=== PATIENT | female | born 1950 | race Caucasian/White ===

== ENCOUNTER → 2021-07-04 16:10 | Outpatient (CLI) | payer MEDICARE, SELFPAY ==
[2021-07-04 19:04] LABS: COVID19 -Nasal RAPID Negative (Negative)
== END ==
PROVIDERS: Referring Provider Nurse Practitioner; Visit Provider Nurse Practitioner
DX: R05 Cough (principal); R09.81 Nasal congestion
CPT/HCPCS: 87635

== ENCOUNTER 2021-07-04 17:14 | Observation (INO) | payer MEDICARE, SELFPAY ==
[2021-07-04] VITALS (33 sets, daily range): BP systolic 100–185; BP diastolic 57–112; PULSE 65–166; RESP 12–26; TEMP 36.6; O2SAT 92–100; BMI 33.8
[2021-07-04] MEDS: ADENOSINE 6 MG/2 ML VIAL IV (17:35)
[2021-07-04] MEDS: ADENOSINE 6 MG/2 ML VIAL 12 MG IV (17:37)
--- NOTE | 2021-07-04 17:41 | DI.RAD.S_ITS ---
PROCEDURE: XR CHEST 1V INDICATIONS: Short of breath TECHNIQUE: One view of the chest was acquired. COMPARISON: None. FINDINGS: Surgical changes and devices: None. Lungs and pleura: Lungs are clear. No pleural effusions or pneumothorax. Mediastinum: Heart size enlarged, there is mild vascular congestion present. No focal infiltrate. Right hemidiaphragm elevated. Bones and chest wall: No suspicious bony lesions. Overlying soft tissues appear unremarkable. IMPRESSION: Cardiomegaly mild vascular congestion Approved by: Jeff Chapman M.D. on 07/04/2021 at 17:52
--- NOTE | 2021-07-04 17:42 | ED_ITS ---
HPI - Arrhythmia/Palpitations <Fidel Villanueva MD - Last Filed: 07/06/21 21:34> General Chief Complaint: Arrhythmia/Palpitations Stated Complaint: xray, blood clots, breathing discomfort Time Seen by Provider: 07/04/21 17:24 Source: patient and family Mode of arrival: Ambulatory Limitations: no limitations History of Present Illness HPI narrative: Patient here with . Sent over from urgent care for intermittent palpitations with dyspnea in the past at least 1 week. Patient is from [place], [place]. Came here about a month ago, residing on their boat at [place]. No recent illness fever chills cough cold or congestion. No prior history of arrhythmia or heart attack or stroke. No recent changes in health. Patient heart rate at Urgent Care was 82. Here she arrived with heart rate of 166. On monitor, rhythm showed episodic sinus tachycardia to atrial flutter/atrial fibrillation to SVT. There are P-waves with the tachycardia. Attempts with Adenocard 6 mg and then 12 mg without resolution. Second EKG does show atrial fibrillation with RVR. Patient tolerated Adenocard without any difficulties. No syncope. No hypotension Related Data Home Medications Medication Instructions Recorded Confirmed estradiol 1 mg tablet 1 mg PO DAILY 07/04/21 07/05/21 progesterone micronized 200 mg 200 mg PO BEDTIME 07/04/21 07/05/21 capsule Previous Rx's Medication Instructions Recorded apixaban 5 mg tablet (Eliquis) 5 mg PO BID #60 tab 07/06/21 diltiazem HCl 60 mg 60 mg PO BID #60 cap 07/06/21 capsule,extended release 12 hr metoprolol succinate 25 mg 12.5 mg PO BID #60 tab 07/06/21 tablet,extended release 24 hr Allergies Allergy/AdvReac Type Severity Reaction Status Date / Time No Known Drug Allergies Allergy Verified 07/04/21 17:31 Review of Systems <Fidel Villanueva MD - Last Filed: 07/06/21 21:34> Review of Systems Narrative: GENERAL: Denies chills, fatigue, malaise, fever, sweats. HEENT: Denies sinus pain, ear pain, sore throat RESPIRATORY: Complains dyspnea, denies cough CARDIOVASCULAR: Denies chest pain, complains of palpitations GASTROINTESTINAL: Denies nausea, vomiting, abdominal pain : Denies dysuria, frequency, hematuria MUSCULOSKELETAL: denies muscle or bony pain SKIN: Denies rash, skin lesions NEUROLOGIC: Denies weakness, numbness ROS Unobtainable: All systems reviewed & are unremarkable except as noted in HPI and below Patient History <Fidel Villanueva MD - Last Filed: 07/06/21 21:34> Medical History (Updated 07/05/21 @ 03:57 by [facility] History of pneumothorax Hormone replacement therapy (HRT) Surgical History (Updated 07/05/21 @ 03:56 by ENEDELIA Pemberton-) History of hysterectomy Family History (Updated 07/05/21 @ 04:13 by DESIRAE Pemberton) Mother Cancer Father Rheumatic fever/heart disease Social History household members: spouse Smoking Status: Former smoker Smoking Status: Former smoker alcohol intake frequency: a few times a week Substance Use Type: does not use Exam <Fidle Villanueva MD - Last Filed: 07/06/21 21:34> Narrative Exam Narrative: GENERAL: in no distress, not toxic not dyspneic HEAD: Normocephalic. EYES: Pupils equal round No scleral icterus. No injection no discharge ENT: Mucous membranes moist. NECK: Trachea midline. CARDIOVASCULAR: Tachycardia with intermittent irregular irregular rhythm. With interval tachycardia with regular rhythm RESPIRATORY: Clear to auscultation. Breath sounds equal bilaterally. No wheezes, rales, or rhonchi. GASTROINTESTINAL: Abdomen soft, non-tender EXTREMITIES: No gross deformities. BACK: No flank tenderness. NEURO: AOx4. SKIN: Warm and dry PSYCH: Not anxious, is cooperative Initial Vital Signs Initial Vital Signs: Vital Signs Temperature 97.9 F 07/04/21 17:15 Pulse Rate 166 H 07/04/21 17:15 Respiratory Rate 24 07/04/21 17:15 Blood Pressure 182/112 H 07/04/21 17:15 Pulse Oximetry 100 07/04/21 17:15 <Zach Abad DO - Last Filed: 07/04/21 23:14> Initial Vital Signs Initial Vital Signs: Vital Signs Temperature 97.9 F 07/04/21 17:15 Pulse Rate 166 H 07/04/21 17:15 Respiratory Rate 24 07/04/21 17:15 Blood Pressure 182/112 H 07/04/21 17:15 Pulse Oximetry 100 07/04/21 17:15 Scores <Fidel Villanueva MD - Last Filed: 07/06/21 21:34> CHADS-VASc CHADS-VASc Score: 2 <Zach Abad DO - Last Filed: 07/04/21 23:14> CHADS-VASc Congestive heart failure: no Hypertension: no Age 75 years or older: no Diabetes mellitus: no Stroke, TIA, or TE: no Vascular disease: no Age 65 to 74 years: yes Sex category (female): Female CHADS-VASc Score: 2 Course <Fidel Villanueva MD - Last Filed: 07/06/21 21:34> Course Course Narrative: 1900 s/o dr abad, awaiting labs and imaging results and response to Cardizem. Will need to call Cardiology as well for possible transfer Patient will need ICU admit for Cardizem drip. Decision to Admit Date: 07/04/21 Decision to Admit time: 17:46 Orders Ordered: Discontinued Medications Acetaminophen (Acetaminophen 325 Mg Tablet) 650 mg PO Q6HR PRN PRN Reason: Fever/Mild Pain (1-3) Adenosine (Adenosine 6 Mg/2 Ml Vial) 6 mg IV NOW ONE Stop: 07/04/21 17:40 Last Admin: 07/04/21 17:35 Dose: 6 mg Documented by: PHYLLIS Adenosine (Adenosine 6 Mg/2 Ml Vial) 12 mg IV NOW ONE Stop: 07/04/21 17:41 Last Admin: 07/04/21 17:37 Dose: 12 mg Documented by: PHYLLIS Apixaban (Apixaban 5 Mg Tablet) 5 mg PO NOW ONE Stop: 07/04/21 21:00 Last Admin: 07/04/21 21:25 Dose: 5 mg Documented by: ABDOULAYE Apixaban (Apixaban 5 Mg Tablet) 5 mg PO BID ANA Last Admin: 07/06/21 08:34 Dose: 5 mg Documented by: Admin: 07/05/21 20:28 Dose: 5 mg Documented by: Admin: 07/05/21 09:18 Dose: 5 mg Documented by: DENICE Aspirin (Aspirin 81 Mg Chew Tab) 324 mg PO NOW ONE Stop: 07/04/21 17:41 Last Admin: 07/04/21 17:50 Dose: 324 mg Documented by: PHYLLIS Diltiazem HCl (Diltiazem Sr 60 Mg) 60 mg PO BID [facility] Last Admin: 07/06/21 08:33 Dose: 60 mg Documented by: Admin: 07/05/21 20:28 Dose: 60 mg Documented by: NOLBERTOHINADER Enoxaparin Sodium (Enoxaparin 40 Mg/0.4 Ml Syringe) 40 mg SUBCUT DAILY [facility] Heparin Sodium (Porcine) (Heparin 5,000 Unit/Ml Vial) 5,000 unit SUBCUT BID [facility] Diltiazem HCl 125 mg/ Sodium (Chloride) 125 mls @ 5 mls/hr IV TITRATE [facility]; Protocol Last Titration: 07/04/21 20:43 Dose: 0 mg/hr, 0 mls/hr Documented by: Titration: 07/04/21 20:23 Dose: 8 mg/hr, 8 mls/hr Documented by: Titration: 07/04/21 20:09 Dose: 10 mg/hr, 10 mls/hr Documented by: Titration: 07/04/21 19:51 Dose: 13 mg/hr, 13 mls/hr Documented by: Titration: 07/04/21 19:40 Dose: 15 mg/hr, 15 mls/hr Documented by: Titration: 07/04/21 18:46 Dose: 20 mg/hr, 20 mls/hr Documented by: Titration: 07/04/21 18:23 Dose: 15 mg/hr, 15 mls/hr Documented by: Titration: 07/04/21 18:07 Dose: 10 mg/hr, 10 mls/hr Documented by: Admin: 07/04/21 17:50 Dose: 5 mg/hr, 5 mls/hr Documented by: PHYLLIS Metoprolol Succinate (Metoprolol Er 25 Mg Tablet) 25 mg PO DAILY [facility] Last Admin: 07/05/21 09:19 Dose: 25 mg Documented by: CLEGRETTA Metoprolol Succinate (Metoprolol Er 25 Mg Tablet) 25 mg PO NOW ONE Stop: 07/05/21 10:31 Last Admin: 07/05/21 10:47 Dose: 25 mg Documented by: CLEOPAR Metoprolol Succinate (Metoprolol Er 25 Mg Tablet) 50 mg PO BID [facility] Metoprolol Succinate (Metoprolol Er 25 Mg Tablet) 12.5 mg PO BID [facility] Last Admin: 07/06/21 08:33 Dose: 12.5 mg Documented by: Admin: 07/05/21 20:29 Dose: 12.5 mg Documented by: JOANN Metoprolol Tartrate (Metoprolol Ir 25 Mg Tablet) 25 mg PO NOW ONE Stop: 07/04/21 19:26 Last Admin: 07/04/21 19:42 Dose: 25 mg Documented by: ABDOULAYE Morphine Sulfate (Morphine 2 Mg/Ml Inj) 2 mg IV Q5MIN PRN PRN Reason: Chest Pain Naloxone HCl (Naloxone 0.4 Mg/Ml Vial) 0.2 mg IV Q2MIN PRN PRN Reason: Opiate Reversal Nitroglycerin (Nitroglycerin 0.4 Mg Sl Tab) 0.4 mg SL [id number] PRN PRN Reason: Chest Pain Ondansetron HCl (Ondansetron 4 Mg/2 Ml Inj) 4 mg IV Q8HR PRN PRN Reason: Nausea And Vomiting Sodium Chloride (Sodium Chloride 0.9% Flush) 10 ml IV PRN PRN PRN Reason: Flush Sodium Chloride (Sodium Chloride 0.9% Flush) 10 ml IV BID [facility] Last Admin: 07/06/21 08:34 Dose: 10 ml Documented by: OSBALDO Vital Signs Vital signs: Vital Signs - 8 hr 07/04/21 17:15 07/04/21 17:27 07/04/21 17:29 Temperature 97.9 F Pulse Rate 166 H 150 H 159 H Respiratory Rate 24 24 23 Blood Pressure 182/112 H 185/102 H Pulse Oximetry 100 100 100 07/04/21 17:30 07/04/21 17:42 07/04/21 17:57 Temperature Pulse Rate 151 H 146 H 149 H Respiratory Rate 20 20 12 Blood Pressure 182/112 H 182/112 H 137/92 H Pulse Oximetry 100 100 100 07/04/21 18:00 07/04/21 18:10 07/04/21 18:20 Temperature Pulse Rate 131 H 130 H 132 H Respiratory Rate 18 17 20 Blood Pressure 140/89 148/98 H 172/78 H Pulse Oximetry 100 98 98 07/04/21 18:30 07/04/21 18:41 07/04/21 18:50 Temperature Pulse Rate 109 H 107 H 108 H Respiratory Rate 14 21 15 Blood Pressure 143/76 H 145/85 H 137/69 Pulse Oximetry 97 98 95 07/04/21 19:00 07/04/21 19:10 07/04/21 19:30 Temperature Pulse Rate 96 H 101 H 91 H Respiratory Rate 16 14 16 Blood Pressure 138/89 137/76 132/77 Pulse Oximetry 96 97 96 07/04/21 19:40 07/04/21 19:50 07/04/21 20:00 Temperature Pulse Rate 87 84 85 Respiratory Rate 14 17 15 Blood Pressure 125/81 130/79 131/63 Pulse Oximetry 95 98 95 07/04/21 20:10 07/04/21 20:20 07/04/21 20:30 Temperature Pulse Rate 89 77 69 Respiratory Rate 25 H 14 18 Blood Pressure 143/78 H 120/60 Pulse Oximetry 96 92 93 07/04/21 20:31 07/04/21 20:40 07/04/21 20:50 Temperature Pulse Rate 69 68 70 Respiratory Rate 18 17 20 Blood Pressure 124/64 114/61 107/61 Pulse Oximetry 93 95 96 07/04/21 21:01 07/04/21 21:11 07/04/21 21:27 Temperature Pulse Rate 81 66 65 Respiratory Rate 26 H 26 H 24 Blood Pressure 122/58 L 104/64 111/66 Pulse Oximetry 94 95 97 07/04/21 21:30 07/04/21 22:00 07/04/21 22:30 Temperature Pulse Rate 67 66 69 Respiratory Rate 21 20 17 Blood Pressure 100/57 L 108/65 100/65 Pulse Oximetry 96 93 94 <Zach Abad, DO - Last Filed: 07/04/21 23:14> Course Additional Information: Patient received in sign-out from Dr. Villanueva. I performed an independent history and physical exam. She is feeling asymptomatic at this point time, Cardizem drip is controlling her heart rate and is now in the upper 90s. I have ordered oral metoprolol with instructions to slowly taper off the Cardizem 2054 - Patient off dilt, HR in the 60s-70s with BP in the low 100s. Orders Ordered: Discontinued Medications Acetaminophen (Acetaminophen 325 Mg Tablet) 650 mg PO Q6HR PRN PRN Reason: Fever/Mild Pain (1-3) Adenosine (Adenosine 6 Mg/2 Ml Vial) 6 mg IV NOW ONE Stop: 07/04/21 17:40 Last Admin: 07/04/21 17:35 Dose: 6 mg Documented by: PHYLLIS Adenosine (Adenosine 6 Mg/2 Ml Vial) 12 mg IV NOW ONE Stop: 07/04/21 17:41 Last Admin: 07/04/21 17:37 Dose: 12 mg Documented by: PHYLLIS Apixaban (Apixaban 5 Mg Tablet) 5 mg PO NOW ONE Stop: 07/04/21 21:00 Last Admin: 07/04/21 21:25 Dose: 5 mg Documented by: ABDOULAYE Apixaban (Apixaban 5 Mg Tablet) 5 mg PO BID [facility] Last Admin: 07/06/21 08:34 Dose: 5 mg Documented by: Admin: 07/05/21 20:28 Dose: 5 mg Documented by: Admin: 07/05/21 09:18 Dose: 5 mg Documented by: DENICE Aspirin (Aspirin 81 Mg Chew Tab) 324 mg PO NOW ONE Stop: 07/04/21 17:41 Last Admin: 07/04/21 17:50 Dose: 324 mg Documented by: PHYLLIS Diltiazem HCl (Diltiazem Sr 60 Mg) 60 mg PO BID [facility] Last Admin: 07/06/21 08:33 Dose: 60 mg Documented by: Admin: 07/05/21 20:28 Dose: 60 mg Documented by: JOANN Enoxaparin Sodium (Enoxaparin 40 Mg/0.4 Ml Syringe) 40 mg SUBCUT DAILY [facility] Heparin Sodium (Porcine) (Heparin 5,000 Unit/Ml Vial) 5,000 unit SUBCUT BID [facility] Diltiazem HCl 125 mg/ Sodium (Chloride) 125 mls @ 5 mls/hr IV TITRATE [facility]; Protocol Last Titration: 07/04/21 20:43 Dose: 0 mg/hr, 0 mls/hr Documented by: Titration: 07/04/21 20:23 Dose: 8 mg/hr, 8 mls/hr Documented by: Titration: 07/04/21 20:09 Dose: 10 mg/hr, 10 mls/hr Documented by: Titration: 07/04/21 19:51 Dose: 13 mg/hr, 13 mls/hr Documented by: Titration: 07/04/21 19:40 Dose: 15 mg/hr, 15 mls/hr Documented by: Titration: 07/04/21 18:46 Dose: 20 mg/hr, 20 mls/hr Documented by: Titration: 07/04/21 18:23 Dose: 15 mg/hr, 15 mls/hr Documented by: Titration: 07/04/21 18:07 Dose: 10 mg/hr, 10 mls/hr Documented by: Admin: 07/04/21 17:50 Dose: 5 mg/hr, 5 mls/hr Documented by: PHYLLIS Metoprolol Succinate (Metoprolol Er 25 Mg Tablet) 25 mg PO DAILY [facility] Last Admin: 07/05/21 09:19 Dose: 25 mg Documented by: DENICE Metoprolol Succinate (Metoprolol Er 25 Mg Tablet) 25 mg PO NOW ONE Stop: 07/05/21 10:31 Last Admin: 07/05/21 10:47 Dose: 25 mg Documented by: YEFRIOPAR Metoprolol Succinate (Metoprolol Er 25 Mg Tablet) 50 mg PO BID [facility] Metoprolol Succinate (Metoprolol Er 25 Mg Tablet) 12.5 mg PO BID [facility] Last Admin: 07/06/21 08:33 Dose: 12.5 mg Documented by: Admin: 07/05/21 20:29 Dose: 12.5 mg Documented by: JOANN Metoprolol Tartrate (Metoprolol Ir 25 Mg Tablet) 25 mg PO NOW ONE Stop: 07/04/21 19:26 Last Admin: 07/04/21 19:42 Dose: 25 mg Documented by: HGUBERN Morphine Sulfate (Morphine 2 Mg/Ml Inj) 2 mg IV Q5MIN PRN PRN Reason: Chest Pain Naloxone HCl (Naloxone 0.4 Mg/Ml Vial) 0.2 mg IV Q2MIN PRN PRN Reason: Opiate Reversal Nitroglycerin (Nitroglycerin 0.4 Mg Sl Tab) 0.4 mg SL [id number] PRN PRN Reason: Chest Pain Ondansetron HCl (Ondansetron 4 Mg/2 Ml Inj) 4 mg IV Q8HR PRN PRN Reason: Nausea And Vomiting Sodium Chloride (Sodium Chloride 0.9% Flush) 10 ml IV PRN PRN PRN Reason: Flush Sodium Chloride (Sodium Chloride 0.9% Flush) 10 ml IV BID ANA Last Admin: 07/06/21 08:34 Dose: 10 ml Documented by: TBLANTO Consultations Consultation #1: discussed with [facility], recommends to keep patient for medication management, and likely echo. Vital Signs Vital signs: Vital Signs - 8 hr 07/04/21 17:15 07/04/21 17:27 07/04/21 17:29 Temperature 97.9 F Pulse Rate 166 H 150 H 159 H Respiratory Rate 24 24 23 Blood Pressure 182/112 H 185/102 H Pulse Oximetry 100 100 100 07/04/21 17:30 07/04/21 17:42 07/04/21 17:57 Temperature Pulse Rate 151 H 146 H 149 H Respiratory Rate 20 20 12 Blood Pressure 182/112 H 182/112 H 137/92 H Pulse Oximetry 100 100 100 07/04/21 18:00 07/04/21 18:10 07/04/21 18:20 Temperature Pulse Rate 131 H 130 H 132 H Respiratory Rate 18 17 20 Blood Pressure 140/89 148/98 H 172/78 H Pulse Oximetry 100 98 98 07/04/21 18:30 07/04/21 18:41 07/04/21 18:50 Temperature Pulse Rate 109 H 107 H 108 H Respiratory Rate 14 21 15 Blood Pressure 143/76 H 145/85 H 137/69 Pulse Oximetry 97 98 95 07/04/21 19:00 07/04/21 19:10 07/04/21 19:30 Temperature Pulse Rate 96 H 101 H 91 H Respiratory Rate 16 14 16 Blood Pressure 138/89 137/76 132/77 Pulse Oximetry 96 97 96 07/04/21 19:40 07/04/21 19:50 07/04/21 20:00 Temperature Pulse Rate 87 84 85 Respiratory Rate 14 17 15 Blood Pressure 125/81 130/79 131/63 Pulse Oximetry 95 98 95 07/04/21 20:10 07/04/21 20:20 07/04/21 20:30 Temperature Pulse Rate 89 77 69 Respiratory Rate 25 H 14 18 Blood Pressure 143/78 H 120/60 Pulse Oximetry 96 92 93 07/04/21 20:31 07/04/21 20:40 07/04/21 20:50 Temperature Pulse Rate 69 68 70 Respiratory Rate 18 17 20 Blood Pressure 124/64 114/61 107/61 Pulse Oximetry 93 95 96 07/04/21 21:01 07/04/21 21:11 07/04/21 21:27 Temperature Pulse Rate 81 66 65 Respiratory Rate 26 H 26 H 24 Blood Pressure 122/58 L 104/64 111/66 Pulse Oximetry 94 95 97 07/04/21 21:30 07/04/21 22:00 07/04/21 22:30 Temperature Pulse Rate 67 66 69 Respiratory Rate 21 20 17 Blood Pressure 100/57 L 108/65 100/65 Pulse Oximetry 96 93 94 MDM - Arrhythmia/Palpitations <Fidel Villanueva MD - Last Filed: 07/06/21 21:34> Lab Data Result diagrams: 07/04/21 17:26 07/06/21 04:35 Labs: Lab Results 07/04/21 07/04/21 07/04/21 Range/Units 17:26 17:26 17:26 WBC 7.7 (4.5-11.0) X10^3/uL RBC 4.33 (4.0-5.2) X10^6/uL Hgb 13.2 (12.0-16.0) g/dL Hct 40.0 (36-46) % MCV 92.4 (80-100) fL MCH 30.4 (26-34) PG MCHC 33.0 (30-36) % RDW 13.8 (11.6-14.8) % Plt Count 227 (150-400) X10^3/uL Neut % (Auto) 68.6 (50-75) % Lymph % (Auto) 22.2 L (25-40) % [place] % (Auto) 7.9 (3-14) % Eos % (Auto) 0.8 L (2-4) % Baso % (Auto) 0.5 (0-2) % Neut # (Auto) 5300 (4780-5968) /uL Lymph # (Auto) 1700 (1094-7277) /uL [place] # (Auto) 600 (0-900) /uL Eos # (Auto) 100 (0-450) /uL Baso # (Auto) 0 (0-100) /uL PT 10.9 (10.1-12.7) SECONDS INR 1.0 (0.9-1.3) Sodium (137-145) mmol/L Potassium (3.4-5.1) mmol/L Chloride (98-107) mmol/L Carbon Dioxide (22-32) mmol/L BUN (7-17) mg/dL Creatinine (0.52-1.04) mg/dL Estimated GFR (>60) mL/min BUN/Creatinine Ratio (6-22) Glucose (80-110) mg/dL Calcium (8.4-10.2) mg/dL Total Bilirubin (0.2-1.3) mg/dL AST (14-36) IU/L ALT (<35) IU/L Alkaline Phosphatase (38-126) U/L Total Creatine Kinase (30-135) U/L CK-MB (CK-2) CK-MB (CK-2) Rel Index Troponin I (0.01-0.034) ng/mL NT-Pro-B Natriuret Pep 1140 H (<125) pg/mL Total Protein (6.3-8.2) g/dL Albumin (3.5-5.0) g/dL Globulin (1.7-4.1) g/dL Albumin/Globulin Ratio (1.0-2.8) SARS-CoV-2 (PCR) (Negative) 07/04/21 07/04/21 Range/Units 17:26 18:19 WBC (4.5-11.0) X10^3/uL RBC (4.0-5.2) X10^6/uL Hgb (12.0-16.0) g/dL Hct (36-46) % MCV (80-100) fL MCH (26-34) PG MCHC (30-36) % RDW (11.6-14.8) % Plt Count (150-400) X10^3/uL Neut % (Auto) (50-75) % Lymph % (Auto) (25-40) % [place] % (Auto) (3-14) % Eos % (Auto) (2-4) % Baso % (Auto) (0-2) % Neut # (Auto) (6446-4687) /uL Lymph # (Auto) (2923-7963) /uL [place] # (Auto) (0-900) /uL Eos # (Auto) (0-450) /uL Baso # (Auto) (0-100) /uL PT (10.1-12.7) SECONDS INR (0.9-1.3) Sodium 140 (137-145) mmol/L Potassium 4.0 (3.4-5.1) mmol/L Chloride 108 H (98-107) mmol/L Carbon Dioxide 25 (22-32) mmol/L BUN 20 H (7-17) mg/dL Creatinine 1.06 H (0.52-1.04) mg/dL Estimated GFR 51.6 L (>60) mL/min BUN/Creatinine Ratio 18.9 (6-22) Glucose 102 (80-110) mg/dL Calcium 9.3 (8.4-10.2) mg/dL Total Bilirubin 0.4 (0.2-1.3) mg/dL AST 31 (14-36) IU/L ALT 30 (<35) IU/L Alkaline Phosphatase 75 (38-126) U/L Total Creatine Kinase 76 (30-135) U/L CK-MB (CK-2) TNP CK-MB (CK-2) Rel Index TNP Troponin I < 0.012 (0.01-0.034) ng/mL NT-Pro-B Natriuret Pep (<125) pg/mL Total Protein 7.1 (6.3-8.2) g/dL Albumin 4.2 (3.5-5.0) g/dL Globulin 2.9 (1.7-4.1) g/dL Albumin/Globulin Ratio 1.4 (1.0-2.8) SARS-CoV-2 (PCR) Negative (Negative) ECG Data Interpretation: EKG 1. Atrial fibrillation with RVR. Rate 136 EKG 2. Atrial fibrillation with RVR rate 158 MDM Narrative Medical decision making narrative: 5:46 p.m.. No cardioversion at this time. Patient is onset greater than 48 hours. Will require ICU it for Cardizem drip for rate control <Zach Abad DO - Last Filed: 07/04/21 23:14> Lab Data Labs: Lab Results 07/04/21 07/04/21 07/04/21 Range/Units 17:26 17:26 17:26 WBC 7.7 (4.5-11.0) X10^3/uL RBC 4.33 (4.0-5.2) X10^6/uL Hgb 13.2 (12.0-16.0) g/dL Hct 40.0 (36-46) % MCV 92.4 (80-100) fL MCH 30.4 (26-34) PG MCHC 33.0 (30-36) % RDW 13.8 (11.6-14.8) % Plt Count 227 (150-400) X10^3/uL Neut % (Auto) 68.6 (50-75) % Lymph % (Auto) 22.2 L (25-40) % [place] % (Auto) 7.9 (3-14) % Eos % (Auto) 0.8 L (2-4) % Baso % (Auto) 0.5 (0-2) % Neut # (Auto) 5300 (2141-4609) /uL Lymph # (Auto) 1700 (8560-2786) /uL [place] # (Auto) 600 (0-900) /uL Eos # (Auto) 100 (0-450) /uL Baso # (Auto) 0 (0-100) /uL PT 10.9 (10.1-12.7) SECONDS INR 1.0 (0.9-1.3) Sodium (137-145) mmol/L Potassium (3.4-5.1) mmol/L Chloride (98-107) mmol/L Carbon Dioxide (22-32) mmol/L BUN (7-17) mg/dL Creatinine (0.52-1.04) mg/dL Estimated GFR (>60) mL/min BUN/Creatinine Ratio (6-22) Glucose (80-110) mg/dL Calcium (8.4-10.2) mg/dL Total Bilirubin (0.2-1.3) mg/dL AST (14-36) IU/L ALT (<35) IU/L Alkaline Phosphatase (38-126) U/L Total Creatine Kinase (30-135) U/L CK-MB (CK-2) CK-MB (CK-2) Rel Index Troponin I (0.01-0.034) ng/mL NT-Pro-B Natriuret Pep 1140 H (<125) pg/mL Total Protein (6.3-8.2) g/dL Albumin (3.5-5.0) g/dL Globulin (1.7-4.1) g/dL Albumin/Globulin Ratio (1.0-2.8) SARS-CoV-2 (PCR) (Negative) 07/04/21 07/04/21 Range/Units 17:26 18:19 WBC (4.5-11.0) X10^3/uL RBC (4.0-5.2) X10^6/uL Hgb (12.0-16.0) g/dL Hct (36-46) % MCV (80-100) fL MCH (26-34) PG MCHC (30-36) % RDW (11.6-14.8) % Plt Count (150-400) X10^3/uL Neut % (Auto) (50-75) % Lymph % (Auto) (25-40) % [place] % (Auto) (3-14) % Eos % (Auto) (2-4) % Baso % (Auto) (0-2) % Neut # (Auto) (6455-5187) /uL Lymph # (Auto) (7874-2151) /uL [place] # (Auto) (0-900) /uL Eos # (Auto) (0-450) /uL Baso # (Auto) (0-100) /uL PT (10.1-12.7) SECONDS INR (0.9-1.3) Sodium 140 (137-145) mmol/L Potassium 4.0 (3.4-5.1) mmol/L Chloride 108 H (98-107) mmol/L Carbon Dioxide 25 (22-32) mmol/L BUN 20 H (7-17) mg/dL Creatinine 1.06 H (0.52-1.04) mg/dL Estimated GFR 51.6 L (>60) mL/min BUN/Creatinine Ratio 18.9 (6-22) Glucose 102 (80-110) mg/dL Calcium 9.3 (8.4-10.2) mg/dL Total Bilirubin 0.4 (0.2-1.3) mg/dL AST 31 (14-36) IU/L ALT 30 (<35) IU/L Alkaline Phosphatase 75 (38-126) U/L Total Creatine Kinase 76 (30-135) U/L CK-MB (CK-2) TNP CK-MB (CK-2) Rel Index TNP Troponin I < 0.012 (0.01-0.034) ng/mL NT-Pro-B Natriuret Pep (<125) pg/mL Total Protein 7.1 (6.3-8.2) g/dL Albumin 4.2 (3.5-5.0) g/dL Globulin 2.9 (1.7-4.1) g/dL Albumin/Globulin Ratio 1.4 (1.0-2.8) SARS-CoV-2 (PCR) Negative (Negative) Critical Care Time <Fidel Villanueva MD - Last Filed: 07/06/21 21:34> Critical Care Time Attestation: Critical Care Time 35 minutes: Critical care time is separate from other billable procedures. This critical care time includes consultation with family and other consulting doctors, review of records, and interpretation of data from labs, EKGs, imaging, etc. Discharge Plan Departure Patient Disposition: Admitted as Observation Clinical Impression: Atrial fibrillation, new onset Admit Date/Time: 07/04/21 22:50 Admit Provider: Aurora Greenberg
[2021-07-04 17:48] LABS: Add Manual Diff / Slide Review NO; Basophils Absolute Auto 0 /uL (0-100); Basophils Percent Auto 0.5 % (0-2); Eosinophils Absolute Auto 100 /uL (0-450); Eosinophils Percent Auto 0.8 % (2-4); Hemoglobin 13.2 g/dL (12.0-16.0); Lymphocytes Absolute Auto 1700 /uL (1100-4500); Lymphocytes Percent Auto 22.2 % (25-40); Mean Corpuscular Hemoglobin 30.4 PG (26-34); Mean Corpuscular Volume 92.4 fL (80-100); Monocytes Absolute Auto 600 /uL (0-900); Monocytes Percent Auto 7.9 % (3-14); Neutrophils Absolute Auto 5300 /uL (1500-7000); Neutrophils Percent Auto 68.6 % (50-75); Platelet Count 227 X10^3/uL (150-400); Red Blood Cell Count 4.33 X10^6/uL (4.0-5.2); Red Cell Distribution Width 13.8 % (11.6-14.8); White Blood Cell Count 7.7 X10^3/uL (4.5-11.0)
[2021-07-04] MEDS: ASPIRIN 81 MG CHEW TAB 324 MG PO (17:50)
[2021-07-04] MEDS: dilTIAZem 125 MG in SODIUM CHLORIDE 0.9% 100 ML IV (17:50)
[2021-07-04 17:52] LABS: Prothrombin Time 10.9 SECONDS (10.1-12.7)
[2021-07-04 17:56] LABS: Alanine Aminotransferase 30 IU/L (<35); Albumin 4.2 g/dL (3.5-5.0); Albumin Globulin Ratio 1.4 (1.0-2.8); Alkaline Phosphatase 75 U/L (38-126); Aspartate Aminotransferase 31 IU/L (14-36); BUN Creatinine Ratio 18.9 (6-22); Bilirubin Total 0.4 mg/dL (0.2-1.3); Blood Urea Nitrogen 20 mg/dL (7-17); Calcium 9.3 mg/dL (8.4-10.2); Carbon Dioxide 25 mmol/L (22-32); Chloride 108 mmol/L (98-107); Creatine Kinase 76 U/L (30-135); Estimated Glomerular Filt Rate 51.6 mL/min (>60); Globulin 2.9 g/dL (1.7-4.1); Glucose 102 mg/dL (80-110); HEMOLYSIS < 15 (0-50); Sodium 140 mmol/L (137-145); Total Protein 7.1 g/dL (6.3-8.2)
[2021-07-04 18:06] LABS: NT-proBNP (BNP-Adult 18+) 1140 pg/mL (<125)
[2021-07-04 18:08] LABS: Troponin I < 0.012 ng/mL (0.01-0.034)
[2021-07-04 19:35] LABS: COVID19 - ADMIT (NP swab/PCR) Negative (Negative)
[2021-07-04] MEDS: METOPROLOL IR 25 MG TABLET PO (19:42)
[2021-07-04] MEDS: APIXABAN 5 MG TABLET PO (21:25)
--- NOTE | 2021-07-04 22:50 | DI.ECHO.S_ITS ---
[facility] +---------+ : : [address] : : : : [id number] : : : : Phone: [phone]+ Echocardiogram Report + + :Name: MISSY STANLEY Study Date: 07/05/2021 Height: 67 in : :[facility] ReadingLocation: Weight: 216 lb : : Gender: Female BSA: 2.1 m2 : :: 1950 Age: 70 yrs BP: 136/78 mmHg: :Reason For Study: Arrhythmia : :Ordering Physician: ALTAGRACIA, : :ARNAUD Performed By: Aurelio Enriquez : :Referring: ARNAUD FRIAS : + + Interpretation Summary 1) Nromal left ventricular thickness, size, wall motion, and systolic function (EF 55-60%). 2) Normal right ventricular size and function., 3) There is mild to moderate mitral regurgitation. 4) No prior Echo available for comparison. Procedure: A two-dimensional transthoracic echocardiogram with color flow and Doppler was performed. The study quality was technically adequate. There is no prior echocardiogram noted for this patient. The patient was in atrial fibrillation with heart rates between 90-114 bpm during the exam. Left Ventricle: The left ventricle is normal in size and wall thickness. Left ventricular systolic function is normal. The ejection fraction is estimated to be 55-60%. There are no focal wall motion abnormalities. Diastolic function could not be accurately assessed due to atrial fibrillation. Right Ventricle: The right ventricle is normal in size and function. Atria: Both atria are normal in size. There is no Doppler evidence for an interatrial shunt. Mitral Valve: The mitral valve is normal in structure and function. There is mild to moderate mitral regurgitation. Aortic Valve: The aortic valve is normal in structure and function. There is no aortic valve stenosis. There is trace aortic regurgitation. Tricuspid Valve: The tricuspid valve is normal in structure and function. There is mild tricuspid regurgitation. The right ventricular systolic pressure is estimated to be at least 36 mmHg based on an estimated right atrial pressure of 3 mm Hg. Pulmonic Valve: The pulmonic valve is normal in structure and function. There is trace pulmonic regurgitation. Great Vessels: The aortic root is normal size. The ascending aorta is mildly enlarged. The IVC is of normal diameter and collapses greater than 50% with a sniff. This suggests a low right atrial pressure of 3 mm Hg. Pericardium/ Pleura There is no pericardial effusion. There is no pleural effusion. MMode/2D Measurements & Calculations LVIDd: 5.0 cm LVOT diam: 1.9 cm LVIDs: 3.5 cm Ao root diam: 3.3 cm FS: 30.4 % asc Aorta Diam: 3.7 cm IVSd: 0.82 cm LVPWd: 0.77 cm LV hoover. diameter/BSA (cm/m^2): 2.4 LV sys. diameter/BSA (cm/m^2): 1.7 LA A2 area: 19.1 cm2 RA long axis: 5.1 cm LA A4 area: 22.9 cm2 RA area: 18.8 cm2 LA length (vol): 6.2 cm RA vol: 58.7 ml LA vol: 59.4 ml RA : 28.1 ml/m2 LA vol index: 28.4 ml/m2 IVC diam: 1.9 cm RVD1 (basal): 3.6 cm TAPSE: 1.7 cm Doppler Measurements & Calculations Ao V2 max: 110.1 cm/sec LVOT Max Gino: 70.7 cm/sec Ao V2 mean: 77.6 cm/sec LV V1 max P.0 mmHg Ao max P.8 mmHg LV V1 VTI: 15.4 cm Ao mean P.7 mmHg LEONARD(I,D): 2.2 cm2 Ao V2 VTI: 19.9 cm LEONARD(V,D): 1.9 cm2 sev ratio: 0.77 LEONARD indexed to BSA (cm^2/m^2): 1.1 TR max gino: 285.1 cm/sec MR VTI: 163.8 cm TR max P.5 mmHg PA pr(Accel): 46.9 mmHg MR PISA: 1.3 cm2 SV(LVOT): 44.6 ml MR PISA radius: 0.46 cm Reading Physician:10:22 AM
[2021-07-04 23:39] LABS: Magnesium 2.1 mg/dL (1.6-2.3)
[2021-07-04 23:40] LABS: Cholesterol 146 mg/dL (140-199); HDL Cholesterol 56 mg/dL (40-60); LDL Cholesterol Calculated 67 mg/dL (<100)
[2021-07-04 23:48] LABS: Triglycerides 113 mg/dL (35-150)
[2021-07-04 23:52] LABS: Troponin I < 0.012 ng/mL (0.01-0.034)
[2021-07-05] VITALS (13 sets, daily range): BP systolic 115–136; BP diastolic 63–87; PULSE 73–138; RESP 16–20; TEMP 36.2–36.7; O2SAT 94–98; BMI 33.8
--- NOTE | 2021-07-05 03:40 | PM.HP.1 ---
History of Present Illness History of Present Illness Date Patient Seen: 07/04/21 Time Patient Seen: 23:03 Chief complaint: xray, blood clots, breathing discomfort Narrative: Patient is a 70-year-old female Lyndsey Patel referred from the walk-in clinic to the ED today for intermittent palpitations with dyspnea in the past at least 1 week. Patient presents with her . Patient is from [place], [place]. No chest pain, body aches, abdominal pain, nausea, vomiting, headache, changes in vision, numbness, tingling, weakness, difficulties with balance or coordination, swelling of hands or feet, fever chills cough cold or congestion. No prior history of arrhythmia or heart attack or stroke. No recent changes in health, no new medications, no recent injury illness or trauma. Patient had a heart rate of 82 at Urgent Care, in the ED heart rate 166. She was found to have on the monitor episodic sinus tachycardia to atrial flutter/atrial fibrillation to SVT. There are P-waves with the tachycardia. Attempts with Adenocard 6 mg and then 12 mg without resolution. Second EKG does show atrial fibrillation with RVR. Patient was eventually placed on Dilt drip in ED, eventually became rate controlled and converted to sinus rhythm, was placed on oral metoprolol and admitted to the floor. Patient reports she has no medical history, approximately 30 years ago she was treated for spontaneous pneumothorax x2, and smoked for approximately 5 years but quit 45 years ago. Her only medications are estradiol and progesterone for hormone replacement. Patient denies any significant stroke or heart attack family history. Upon admit patient is resting comfortably sitting on the side of her bed, in no distress. Vital signs are stable temp 97.9?, BP 111/66, HR 65, RR 24, 96% O2 saturation on room air. Patient's CBC is within normal limits, patient demonstrates mild kidney injury which she reports was mentioned to her approximately 1 year ago from her previous PCP. Chloride 108, BUN 20, ETHNOLOGY TEACHER 1.06, GFR 51.6. Patient did have a mildly elevated BNP and 1140. EKG demonstrated atrial fibrillation with RVR. Patient and her spouse had concerns regarding possible delayed side effect to the Zack & Zack vaccine that she received February of 2021, and the risk of blood clots. Reviewed signs and symptoms of DVT/PE discussed the use of anticoagulants while in the hospital, and plan of care. Patient admitted for atrial fibrillation with RVR. Patient History Medical History (Updated 07/05/21 @ 03:57 by DESIRAE Pemberton) History of pneumothorax Hormone replacement therapy (HRT) Surgical History (Updated 07/05/21 @ 03:56 by DESIRAE Pemberton) History of hysterectomy Family & Social History Family History (Updated 07/05/21 @ 04:13 by DESIRAE Pemberton) Mother Cancer Father Rheumatic fever/heart disease Social History: Prior Living Arrangements lives on a boat with her spouse, retired Safety & Behavioral: Feels Safe in Current Yes Environment Suicidal Ideation Description None Tobacco & Substance use: Smoking Status Former smoker, smoked for approximately 5 years and quit 45 years ago alcohol intake frequency a few times a week-1-2 glasses Substance Use Type does not use Meds Home Medications and Allergies Home Medications Medication Instructions Recorded Confirmed Type estradiol 1 mg tablet 1 mg PO DAILY 07/04/21 07/05/21 History progesterone micronized 200 mg 200 mg PO BEDTIME 07/04/21 07/05/21 History capsule Allergies Allergy/AdvReac Type Severity Reaction Status Date / Time No Known Drug Allergies Allergy Verified 07/04/21 17:31 Review of Systems Review of Systems Narrative: All 12 point systems reviewed with the patient and are negative except otherwise documented. Exam Vital Signs (past 8 hours): - 07/04/21 19:50 07/04/21 20:00 07/04/21 20:10 Temperature Pulse Rate 84 85 89 Respiratory Rate 17 15 25 H Blood Pressure 130/79 131/63 143/78 H Pulse Oximetry 98 95 96 07/04/21 20:20 07/04/21 20:30 07/04/21 20:31 Temperature Pulse Rate 77 69 69 Respiratory Rate 14 18 18 Blood Pressure 120/60 124/64 Pulse Oximetry 92 93 93 07/04/21 20:40 07/04/21 20:50 07/04/21 21:01 Temperature Pulse Rate 68 70 81 Respiratory Rate 17 20 26 H Blood Pressure 114/61 107/61 122/58 L Pulse Oximetry 95 96 94 07/04/21 21:11 07/04/21 21:27 07/04/21 21:30 Temperature Pulse Rate 66 65 67 Respiratory Rate 26 H 24 21 Blood Pressure 104/64 111/66 100/57 L Pulse Oximetry 95 97 96 07/04/21 22:00 07/04/21 22:30 07/04/21 23:00 Temperature Pulse Rate 66 69 73 Respiratory Rate 20 17 20 Blood Pressure 108/65 100/65 105/72 Pulse Oximetry 93 94 96 07/04/21 23:30 07/04/21 23:57 07/05/21 01:38 Temperature 97.9 F Pulse Rate 75 87 Respiratory Rate 23 20 Blood Pressure 115/67 119/83 Pulse Oximetry 94 96 94 Oxygen Delivery Method Room Air Oxygen Flow Rate 0 Narrative Exam Narrative: General: Patient is a well-developed, well-nourished delightful female in no distress at this time. HEENT: Normocephalic, atraumatic, extraocular muscles intact, oral pharynx is clear and mucous membranes are moist. Neck is supple and symmetric, trachea is midline, no adenopathy, no thyroid enlargement, nontender, no masses palpated. Negative for JVD Chest: Normal AP diameter and contour without kyphoscoliosis, no nasal flaring, retractions, or tachypneic labored Lungs: Auscultation of all lung parrish are clear without adventitious sounds, wheezes, rhonchi, or rales. Cardio: S1 & S2 with regular rate and rhythm without murmur, rubs, or gallops, no carotid bruit, no cardiac pulsations present. Abdomen: Soft nontender, negative for organomegaly, or masses. Bowel sounds are present in all 4 quadrants without guarding or rebound, no CVA tenderness. Musculoskeletal: Muscle strength and tone are equal within normal limits, no deformity, crepitus, effusions, cyanosis, clubbing or edema present. Full range of motion intact radial and pedal pulses are normal. Skin: Warm dry and intact without rashes, ulcerations or petechiae. Neuro: Alert and orientated x3, strength is +5/5 in all extremities, sensation to touch intact, no gross deficits noted of cranial nerves. Psych: Patient has a well-kept appearance, appropriate affect, mental status attitude thought context and judgment are appropriate for age. Objective Labs Result Diagrams: 07/04/21 17:26 07/04/21 17:26 Labs: Laboratory Results - last 24 hr 07/04/21 07/04/21 07/04/21 17:26 17:26 17:26 WBC 7.7 RBC 4.33 Hgb 13.2 Hct 40.0 MCV 92.4 MCH 30.4 MCHC 33.0 RDW 13.8 Plt Count 227 Neut % (Auto) 68.6 Lymph % (Auto) 22.2 L Lanier % (Auto) 7.9 Eos % (Auto) 0.8 L Baso % (Auto) 0.5 Neut # (Auto) 5300 Lymph # (Auto) 1700 Lanier # (Auto) 600 Eos # (Auto) 100 Baso # (Auto) 0 PT 10.9 INR 1.0 Sodium Potassium Chloride Carbon Dioxide BUN Creatinine Estimated GFR BUN/Creatinine Ratio Glucose Calcium Magnesium Total Bilirubin AST ALT Alkaline Phosphatase Total Creatine Kinase CK-MB (CK-2) CK-MB (CK-2) Rel Index Troponin I NT-Pro-B Natriuret Pep 1140 H Total Protein Albumin Globulin Albumin/Globulin Ratio Triglycerides Cholesterol LDL Cholesterol, Calc HDL Cholesterol SARS-CoV-2 (PCR) 07/04/21 07/04/21 07/04/21 17:26 18:19 23:16 WBC RBC Hgb Hct MCV MCH MCHC RDW Plt Count Neut % (Auto) Lymph % (Auto) Lanier % (Auto) Eos % (Auto) Baso % (Auto) Neut # (Auto) Lymph # (Auto) Lanier # (Auto) Eos # (Auto) Baso # (Auto) PT INR Sodium 140 Potassium 4.0 Chloride 108 H Carbon Dioxide 25 BUN 20 H Creatinine 1.06 H Estimated GFR 51.6 L BUN/Creatinine Ratio 18.9 Glucose 102 Calcium 9.3 Magnesium Total Bilirubin 0.4 AST 31 ALT 30 Alkaline Phosphatase 75 Total Creatine Kinase 76 CK-MB (CK-2) TNP CK-MB (CK-2) Rel Index TNP Troponin I < 0.012 NT-Pro-B Natriuret Pep Total Protein 7.1 Albumin 4.2 Globulin 2.9 Albumin/Globulin Ratio 1.4 Triglycerides 113 Cholesterol 146 LDL Cholesterol, Calc 67 HDL Cholesterol 56 SARS-CoV-2 (PCR) Negative 07/04/21 07/04/21 23:16 23:16 WBC RBC Hgb Hct MCV MCH MCHC RDW Plt Count Neut % (Auto) Lymph % (Auto) Lanier % (Auto) Eos % (Auto) Baso % (Auto) Neut # (Auto) Lymph # (Auto) Lanier # (Auto) Eos # (Auto) Baso # (Auto) PT INR Sodium Potassium Chloride Carbon Dioxide BUN Creatinine Estimated GFR BUN/Creatinine Ratio Glucose Calcium Magnesium 2.1 Total Bilirubin AST ALT Alkaline Phosphatase Total Creatine Kinase CK-MB (CK-2) CK-MB (CK-2) Rel Index Troponin I < 0.012 NT-Pro-B Natriuret Pep Total Protein Albumin Globulin Albumin/Globulin Ratio Triglycerides Cholesterol LDL Cholesterol, Calc HDL Cholesterol SARS-CoV-2 (PCR) Assessment & Plan Assessment & Plan narrative: Lyndsey Patel is a 70-year-old female who presented to the ED with acute new onset of atrial fibrillation with RVR, Dr. Muller cardiology was consulted in the ED, and recommended that the patient be admitted for cardiology workup. Patient has no known medical history of risk factors, other than obesity. Patient was admitted for new onset atrial fibrillation with RVR. 1. New onset Atrial fibrillation, acute, in the setting of obesity as evidence by BMI 33.8, acute on chronic, present on admission-stable asymptomatic -I personally reviewed EKG demonstrated atrial fibrillation with RVR-as high as 160s, -rate controlled following Diltiazem drip, then transitioned onto oral metoprolol in ED. BP 111/66, HR 65, O2 saturation 96% on room air on admit, patient remains in AFib. -total cholesterol 146, triglycerides 113, LDL 67, HDL 56 -Creatinine clearance: 79 mL/min, BNP 1140 R/O HF, troponin x 2 :< 0.012- repeat x1 in am, TSH -patient is stable denies chest pain, shortness of breath. -Dr. Muller Cardiology :determined patient was not a candidate for cardioversion in ED. -continue patient on metoprolol 25 mg q.day, Eliquis 5 mg b.i.d.-provide patient education and handouts on atrial fibrillation, Eliquis and metoprolol. -stress test and echo ordered for tomorrow -patient admitted on telemedicine -the patient and her spouse expressed extreme concern regarding possible blood [id number] ordered in a.m. -consideration will be given to dietary counseling -patient have outpatient cardiology follow-up 2. Acute Kidney injury, acute likely chronic, present on admission -chloride 108, BUN 20, creatinine 1.06, GFR 51.6-patient reported that she was advised by her PCP over a year ago that she had some sort of kidney impairment. -NS mild hydration provided in ED -recommend patient to follow-up with PCP for further evaluation 3. Hormone replacement therapy, chronic, present on admission -Continue patient's estradiol and progesterone Code status: Full code Surrogate decision maker: Hiro Patel spouse COVID PCR: Negative COVID vaccination: Zack & Zack February 2021 VTE/DVT prophylaxis: Eliquis 5 mg b.i.d., SCDs Disposition: Expected length of stay less than 2 midnights-admitted for observation for cardiac workup and evaluation. I have utilized all available immediate resources to obtain, update, or review the patient's current medications. I confirmed that the patient's advanced care plan is present, Code status is documented and/or surrogate decision maker is listed in the patient's medical record. Scores GCS [place] coma scale eye opening: Spontaneous Leeanna coma scale verbal response: Orientated Leeanna coma scale motor response: Obey commands [place] coma scale total score: 15 CHADS-VASc Congestive heart failure: no Hypertension: no Age 75 years or older: no Diabetes mellitus: no Stroke, TIA, or TE: no Vascular disease: no Age 65 to 74 years: yes Sex category (female): Female CHADS-VASc Score: 2 Wells' Criteria for PE Clinical signs and symptoms of DVT: No PE is #1 Dx or equally likely: No Heart rate > 100: Yes Immobilization at least 3 days or surg in previous 4 weeks: No History of PE or DVT: No Hemoptysis: No Malignancy w/Treatment within 6 months or palliative: No Wells' PE Score total: 1.5
[2021-07-05 07:48] LABS: INR 1.2 (0.9-1.3); Prothrombin Time 12.9 SECONDS (10.1-12.7)
[2021-07-05 07:56] LABS: D Dimer 210 ng/mL (<230)
[2021-07-05 08:03] LABS: Alanine Aminotransferase 27 IU/L (<35); Albumin 3.6 g/dL (3.5-5.0); Albumin Globulin Ratio 1.3 (1.0-2.8); Alkaline Phosphatase 65 U/L (38-126); Aspartate Aminotransferase 30 IU/L (14-36); Bilirubin Total 0.6 mg/dL (0.2-1.3); Blood Urea Nitrogen 18 mg/dL (7-17); Calcium 8.9 mg/dL (8.4-10.2); Carbon Dioxide 24 mmol/L (22-32); Chloride 109 mmol/L (98-107); Estimated Glomerular Filt Rate 55.1 mL/min (>60); Globulin 2.8 g/dL (1.7-4.1); Glucose 97 mg/dL (80-110); HEMOLYSIS < 15 (0-50); Potassium 3.9 mmol/L (3.4-5.1); Sodium 138 mmol/L (137-145); Total Protein 6.4 g/dL (6.3-8.2)
[2021-07-05 08:13] LABS: NT-proBNP (BNP-Adult 18+) 881 pg/mL (<125)
[2021-07-05 08:16] LABS: Troponin I < 0.012 ng/mL (0.01-0.034)
[2021-07-05 08:35] LABS: TSH w/ Reflex to FT4 5.28 uIU/mL (0.47-4.68)
[2021-07-05 09:01] LABS: Free T4, Direct Thyroxine 1.25 ng/dL (0.78-2.19)
[2021-07-05] MEDS: APIXABAN 5 MG TABLET PO ×2 (09:18→20:28)
[2021-07-05] MEDS: METOPROLOL ER 25 MG TABLET PO ×2 (09:19→10:47)
--- NOTE | 2021-07-05 12:17 | PC.NURSE ---
Nursing note- Gave patient second dose of Metoprolol 25mg as heart rate up to 150 when up to the bathroom. She denies chest pain but did complain of mild sob earlier but states this has resolved. Pulse is now down to 99. Patient is visiting with her .
--- NOTE | 2021-07-05 16:01 | CM.IDA ---
Initial DCP Assessment Note Pt is a 70 yo female, resident of [place], visiting the area on vacation (boating). Per H+P: referred from the walk-in clinic to the ED today for intermittent palpitations with dyspnea in the past at least 1 week. PCP: Artur SILVA Payer: BRAYDON/ANA Met w/patient and spouse Jairo this morning, introduced role. Patient and spouse await results from echo and state they do not expect needs from this COAT CHECKER; are currently anxious to hear from the physician re: next steps in medical POC. Patient/spouse live in [place], are boating in the area. Patient/spouse have friends that live locally and can be a support as needed upon DC. No needs expected from DC planning team although will remain available in case this changes before DC. PABLO Mckinney Discharge Planning/Care Management CM Discharge Assessment Start: 07/05/21 15:57 Freq: Status: Active Protocol: Document 07/05/21 15:57 ANUPAM (Rec: 07/05/21 16:01 ANUPAM [id number]) Discharge Planning Assessment Assigned Turbo Electric Operator PABLO Meadows DPOA/Assigned Designee Name Jairo Patel, spouse Contact Information [phone] Advance Directives? Yes Advance Directives on File No: pt does not have with them History Provided By Patient,Significant Other Prior Living Arrangements Mobile home Comment Patient's primary residence is in [place]. Patient/spouse are on their boat, currently [facility]ed [facility]. Household Members spouse Type of transporation used prior to Drives own vehicle admit Independent with ADL's Yes Is patient alert and oriented? Yes Barriers to Discharge No Discharge Plan Home Transportation Arrangement Spouse Referrals Initiated None needed Whiteboard Updated in Patient Room with Yes name and ext. # of Turbo Electric Operator
--- NOTE | 2021-07-05 16:36 | DIET.CONS ---
Dietary Consultation Note Admission Date: 07/04/2021 22:50 Assessment: 70 y/o F new onset afib and >30 BMI. Checked to see if she had any nutrition questions today. Her present state they have recently sold their home and mostly living out of their boat and car. Further, states they have perhaps gained some weight from having dinner parties. Few questions about overall nutrition. Ht: 170.18 cm Wt: 97.976 kg BMI: 33.8 Last BM: 07/04/21 (07/05/21 00:45) MNA: 14 Ferny Score: 23 Diet: 07/04/21 Breakfast General (Regular) Diet Diet Modifications: Percent of last meal consumed (last 48h) Percent Meal Consumed 80 07/05/21 13:35 Percent Meal Consumed 65 07/05/21 09:00 Labs: RBC 4.33 X10^6/uL (4.0-5.2) 07/04/21 17:26 Hgb 13.2 g/dL (12.0-16.0) 07/04/21 17:26 Hct 40.0 % (36-46) 07/04/21 17:26 Creatinine 1.00 mg/dL (0.52-1.04) 07/05/21 07:10 NT-Pro-B Natriuret Pep 881 pg/mL (<125) H 07/05/21 07:10 Nutrition Diagnosis: none at this time Interventions: Reviewed importance of lean proteins and vegetable intake. Encouraged safe physical activity when cleared. Monitoring/Evaluations: none
--- NOTE | 2021-07-05 18:17 | PM.PN.1 ---
Subjective Subjective Date Patient Seen: 07/05/21 Time Patient Seen: 18:17 Interval history: Denies chest pain, shortness of breath, nausea, vomiting. Minimal palpitations which are minimally bothersome. Rate remains intermittently to the 110s. Still in afib. TTE with normal EF today, no change in rate with oral metoprolol despite increasing doses. Will add diltiazem this evening to assess response. Off of dilt infusion. Exam Vital Signs (past 8 hours): - 07/05/21 11:05 07/05/21 12:00 07/05/21 12:15 Temperature 97.4 F L Pulse Rate 98 H 138 H Respiratory Rate 17 Blood Pressure 115/63 Pulse Oximetry 98 97 07/05/21 15:00 07/05/21 16:00 Temperature 98.1 F Pulse Rate 73 Respiratory Rate 16 Blood Pressure 120/80 Pulse Oximetry 97 94 Oxygen Delivery Method Room Air Oxygen Flow Rate 0 Narrative Exam Narrative: General: Patient is a well-developed, well-nourished delightful female in no distress at this time. HEENT: Normocephalic, atraumatic, extraocular muscles intact, oral pharynx is clear and mucous membranes are moist. Neck is supple and symmetric, trachea is midline. Negative for JVD Chest: Normal AP diameter and contour without kyphoscoliosis Lungs: Auscultation of all lung parrish are clear without wheezes, rhonchi, or rales. Cardio: Irregularly irregular rhythm, tachycardic rate, no murmurs, rubs, or gallops. Abdomen: Soft, nontender, and nondistended Musculoskeletal: No tenderness or joint effusions Skin: Warm dry and intact without rashes, ulcerations or petechiae. Neuro: Alert and orientated x3, strength is +5/5 in all extremities, sensation to touch intact, no gross deficits noted of cranial nerves. Psych: Patient has a well-kept appearance, appropriate affect, mental status attitude thought context and judgment are appropriate for age. Objective Labs Result Diagrams: 07/04/21 17:26 07/05/21 07:10 Labs: Laboratory Results - last 24 hr 07/04/21 07/04/21 07/04/21 18:19 23:16 23:16 PT INR D-Dimer Sodium Potassium Chloride Carbon Dioxide BUN Creatinine Estimated GFR BUN/Creatinine Ratio Glucose Calcium Magnesium 2.1 Total Bilirubin AST ALT Alkaline Phosphatase Troponin I NT-Pro-B Natriuret Pep Total Protein Albumin Globulin Albumin/Globulin Ratio Triglycerides 113 Cholesterol 146 LDL Cholesterol, Calc 67 HDL Cholesterol 56 TSH Free T4 SARS-CoV-2 (PCR) Negative 07/04/21 07/05/21 07/05/21 23:16 07:10 07:10 PT 12.9 H INR 1.2 D-Dimer Sodium 138 Potassium 3.9 Chloride 109 H Carbon Dioxide 24 BUN 18 H Creatinine 1.00 Estimated GFR 55.1 L BUN/Creatinine Ratio 18.0 Glucose 97 Calcium 8.9 Magnesium Total Bilirubin 0.6 AST 30 ALT 27 Alkaline Phosphatase 65 Troponin I < 0.012 NT-Pro-B Natriuret Pep 881 H Total Protein 6.4 Albumin 3.6 Globulin 2.8 Albumin/Globulin Ratio 1.3 Triglycerides Cholesterol LDL Cholesterol, Calc HDL Cholesterol TSH Free T4 SARS-CoV-2 (PCR) 07/05/21 07/05/21 07/05/21 07:10 07:10 07:10 PT INR D-Dimer 210 Sodium Potassium Chloride Carbon Dioxide BUN Creatinine Estimated GFR BUN/Creatinine Ratio Glucose Calcium Magnesium Total Bilirubin AST ALT Alkaline Phosphatase Troponin I < 0.012 NT-Pro-B Natriuret Pep Total Protein Albumin Globulin Albumin/Globulin Ratio Triglycerides Cholesterol LDL Cholesterol, Calc HDL Cholesterol TSH 5.28 H Free T4 1.25 SARS-CoV-2 (PCR) [facility] Medical History (Updated 07/05/21 @ 03:57 by Aurora Greenberg [facility]) History of pneumothorax Hormone replacement therapy (HRT) Surgical History (Updated 07/05/21 @ 03:56 by Aurora Greenberg [facility]) History of hysterectomy Family History (Updated 07/05/21 @ 04:13 by Aurora Greenberg [facility]) Mother Cancer Father Rheumatic fever/heart disease Social History household members: spouse Smoking Status: Former smoker Assessment & Plan Assessment & Plan narrative: Lyndsey Patel is a 70-year-old female who presented to the ED with acute new onset of atrial fibrillation with RVR, Dr. Muller cardiology was consulted in the ED, and recommended that the patient be admitted for cardiology workup. Patient has no known medical history of risk factors, other than obesity. Patient was admitted for new onset atrial fibrillation with RVR. 1. New onset Atrial fibrillation, acute, in the setting of obesity as evidence by BMI 33.8, acute on chronic, present on admission-stable asymptomatic -TTE with EF 55-60%, normal left ventricular thickness, size, wall motion. mild-moderate MR. -initially improved with dilt infusion and PO metoprolol. Oral metoprolol today with less success. Will transition to 12.5 mg metoprolol and PO diltiazem tonight to try and improve rate control. -CHADS2-VASC of 2, started on AC after discussion. Continue eliquis. 2. Probable CKD 3 - creatinine 1.06 on admission, 1.00. Continue to follow. 3. Hormone replacement therapy, chronic, present on admission -Continue patient's estradiol and progesterone. Consider cessation given for stroke risk. 4. Subclinical hypothyroidism - PCP follow up. TSH 5.28 with normal free t4. Code status: Full code Surrogate decision maker: Hiro Patel spouse COVID PCR: Negative COVID vaccination: [employer] February 2021 VTE/DVT prophylaxis: Eliquis 5 mg b.i.d., SCDs Disposition: Expected length of stay less than 2 midnights-admitted for observation for cardiac workup and evaluation. I have utilized all available immediate resources to obtain, update, or review the patient's current medications. I confirmed that the patient's advanced care plan is present, Code status is documented and/or surrogate decision maker is listed in the patient's medical record. Dispo: remains observation, able to discharge once rate control adequately achieved. Scores CHADS-VASc Congestive heart failure: no Hypertension: no Age 75 years or older: no Diabetes mellitus: no Stroke, TIA, or TE: no Vascular disease: no Age 65 to 74 years: yes Sex category (female): Female CHADS-VASc Score: 2
[2021-07-05] MEDS: dilTIAZem SR 60 MG PO (20:28)
[2021-07-05] MEDS: METOPROLOL ER 25 MG TABLET 12.5 MG PO (20:29)
[2021-07-06] VITALS (7 sets, daily range): BP systolic 119–121; BP diastolic 73–79; PULSE 70–89; RESP 14–18; TEMP 36.1–36.7; O2SAT 95–98
[2021-07-06 04:54] LABS: BUN Creatinine Ratio 19.4 (6-22); Blood Urea Nitrogen 20 mg/dL (7-17); Calcium 8.6 mg/dL (8.4-10.2); Carbon Dioxide 25 mmol/L (22-32); Chloride 110 mmol/L (98-107); Estimated Glomerular Filt Rate 53.3 mL/min (>60); Glucose 97 mg/dL (80-110); HEMOLYSIS < 15 (0-50); Magnesium 2.2 mg/dL (1.6-2.3); Potassium 4.6 mmol/L (3.4-5.1); Sodium 137 mmol/L (137-145)
--- NOTE | 2021-07-06 06:30 | PC.NURSE ---
Tire Adjuster Note-Patient remains A-fib CVR, no tachycardia noted while ambulating to BR, denies chest pain, palpitations, shortness of breath, or dizziness. VSS. in room with overnight.
--- NOTE | 2021-07-06 07:58 | P.PN_ITS ---
Subjective Subjective Date Patient Seen: 07/06/21 Exam Vital Signs (past 8 hours): - 07/06/21 00:00 07/06/21 00:30 07/06/21 03:50 Temperature 97.2 F L 98.1 F Pulse Rate 86 86 Respiratory Rate 18 14 Blood Pressure 119/73 119/79 Pulse Oximetry 96 96 95 07/06/21 04:30 Temperature Pulse Rate Respiratory Rate Blood Pressure Pulse Oximetry 95 Oxygen Delivery Method Room Air Oxygen Flow Rate 0 Objective Labs Result Diagrams: 07/04/21 17:26 07/06/21 04:35 Labs: Laboratory Results - last 24 hr 07/05/21 07/05/21 07/05/21 07:10 07:10 07:10 D-Dimer 210 Sodium 138 Potassium 3.9 Chloride 109 H Carbon Dioxide 24 BUN 18 H Creatinine 1.00 Estimated GFR 55.1 L BUN/Creatinine Ratio 18.0 Glucose 97 Calcium 8.9 Magnesium Total Bilirubin 0.6 AST 30 ALT 27 Alkaline Phosphatase 65 Troponin I < 0.012 NT-Pro-B Natriuret Pep 881 H Total Protein 6.4 Albumin 3.6 Globulin 2.8 Albumin/Globulin Ratio 1.3 TSH Free T4 07/05/21 07/06/21 07:10 04:35 D-Dimer Sodium 137 Potassium 4.6 Chloride 110 H Carbon Dioxide 25 BUN 20 H Creatinine 1.03 Estimated GFR 53.3 L BUN/Creatinine Ratio 19.4 Glucose 97 Calcium 8.6 Magnesium 2.2 Total Bilirubin AST ALT Alkaline Phosphatase Troponin I NT-Pro-B Natriuret Pep Total Protein Albumin Globulin Albumin/Globulin Ratio TSH 5.28 H Free T4 1.25 PFSH Medical History (Updated 07/05/21 @ 03:57 by ENEDELIA Pemberton-MOLLY) History of pneumothorax Hormone replacement therapy (HRT) Surgical History (Updated 07/05/21 @ 03:56 by DESIRAE Pemberton) History of hysterectomy Family History (Updated 07/05/21 @ 04:13 by DESIRAE Pemberton) Mother Cancer Father Rheumatic fever/heart disease Social History household members: spouse Smoking Status: Former smoker Assessment & Plan Assessment & Plan narrative: Lyndsey Patel is a 70-year-old female who presented to the ED with acute new onset of atrial fibrillation with RVR, Dr. Muller cardiology was consulted in the ED, and recommended that the patient be admitted for cardiology workup. Patient has no known medical history of risk factors, other than obesity. Patient was admitted for new onset atrial fibrillation with RVR. 1. New onset Atrial fibrillation, acute, in the setting of obesity as evidence by BMI 33.8, acute on chronic, present on admission-stable asymptomatic -TTE with EF 55-60%, normal left ventricular thickness, size, wall motion. mild- moderate MR. -initially improved with dilt infusion and PO metoprolol. Oral metoprolol today with less success. Will transition to 12.5 mg metoprolol and PO diltiazem tonight to try and improve rate control. -CHADS2-VASC of 2, started on AC after discussion. Continue eliquis. 2. Probable CKD 3 - creatinine 1.06 on admission, 1.00. Continue to follow. 3. Hormone replacement therapy, chronic, present on admission -Continue patient's estradiol and progesterone. Consider cessation given for stroke risk. 4. Subclinical hypothyroidism - PCP follow up. TSH 5.28 with normal free t4. Code status: Full code Surrogate decision maker: Hiro Patel spouse COVID PCR: Negative COVID vaccination: [employer] February 2021 VTE/DVT prophylaxis: Eliquis 5 mg b.i.d., SCDs Disposition: Expected length of stay less than 2 midnights-admitted for observation for cardiac workup and evaluation. I have utilized all available immediate resources to obtain, update, or review the patient's current medications. I confirmed that the patient's advanced care plan is present, Code status is documented and/or surrogate decision maker is listed in the patient's medical record. Dispo: remains observation, able to discharge once rate control adequately achieved.
[2021-07-06] MEDS: dilTIAZem SR 60 MG PO (08:33)
[2021-07-06] MEDS: METOPROLOL ER 25 MG TABLET 12.5 MG PO (08:33)
[2021-07-06] MEDS: SODIUM CHLORIDE 0.9% FLUSH 10 ML IV (08:34)
[2021-07-06] MEDS: APIXABAN 5 MG TABLET PO (08:34)
--- NOTE | 2021-07-06 10:51 | PM.DS.1 ---
History of Present Illness History of Present Illness Chief complaint: xray, blood clots, breathing discomfort Discharge Providers Provider Date of admission: 07/04/21 22:50 Discharge Date: 07/06/21 Primary care physician: Doctor Hari MD Consults: 07/05/21 04:40 Consult to Dietitian, Adult Routine Comment: Reason For Exam: BMI 33.8, new onset AFib Discharge provider: Rylee Malik MD Summary Hospital Course Discharge Diagnosis: 1. New onset Atrial fibrillation 2. Probable CKD 3 3. Hormone replacement therapy 4. Subclinical hypothyroidism Hospital Course: Lyndsey Patel is a 70-year-old female who presented to the ED with acute new onset of atrial fibrillation with RVR, Dr. Muller cardiology was consulted in the ED, and recommended that the patient be admitted for cardiology workup. Patient has no known medical history of risk factors, other than obesity. Patient was admitted for new onset atrial fibrillation with RVR. 1. New onset Atrial fibrillation -TTE with EF 55-60%, normal left ventricular thickness, size, wall motion. mild-moderate MR. -initially improved with dilt infusion and PO metoprolol. With transition to 12.5 mg metoprolol and PO diltiazem last night she has remained stable this morning with HR's less than 100 - in afib. . -CHADS2-VASC of 2, started on Anticoagulation after discussion. Continue eliquis. -she will discharge home to [place] and follow-up with her primary care there soon. She has the name of an clinical fellow in [place] that she plans to see. We talked about potential for cardioversion once she has been anticoagulated for an appropriate interval. 2. Possible CKD - creatinine 1.06 on admission 3. Hormone replacement therapy, chronic, present on admission -Continue patient's estradiol and progesterone. Consider cessation given stroke risk. 4. Subclinical hypothyroidism - PCP follow up. TSH 5.28 with normal free t4. Code status: Full code Surrogate decision maker: Hiro Patel spouse COVID PCR: Negative COVID vaccination: [employer] February 2021 VTE/DVT prophylaxis: Eliquis 5 mg b.i.d., SCDs Exam Vital Signs (past 8 hours): - 07/06/21 03:50 07/06/21 04:30 07/06/21 07:00 Temperature 98.1 F 97.0 F L Pulse Rate 86 70 Respiratory Rate 14 17 Blood Pressure 119/79 121/76 Pulse Oximetry 95 95 95 07/06/21 09:00 07/06/21 09:49 Temperature Pulse Rate 89 Respiratory Rate Blood Pressure Pulse Oximetry 98 Oxygen Delivery Method Room Air Oxygen Flow Rate 0 Objective Labs Result Diagrams: 07/04/21 17:26 07/06/21 04:35 Labs: Laboratory Results - last 24 hr 07/06/21 04:35 Sodium 137 Potassium 4.6 Chloride 110 H Carbon Dioxide 25 BUN 20 H Creatinine 1.03 Estimated GFR 53.3 L BUN/Creatinine Ratio 19.4 Glucose 97 Calcium 8.6 Magnesium 2.2 PFSH Medical History (Updated 07/05/21 @ 03:57 by ENEDELIA PembertonMOLLY) History of pneumothorax Hormone replacement therapy (HRT) Surgical History (Updated 07/05/21 @ 03:56 by DESIRAE Pemberton) History of hysterectomy Family History (Updated 07/05/21 @ 04:13 by ENEDELIA PembertonMOLLY) Mother Cancer Father Rheumatic fever/heart disease Social History household members: spouse Smoking Status: Former smoker Discharge Assessment & Plan Assessment and Plan Assessment: Lyndsey Patel is a 70-year-old female who presented to the ED with acute new onset of atrial fibrillation with RVR, Dr. Muller cardiology was consulted in the ED, and recommended that the patient be admitted for cardiology workup. Patient has no known medical history of risk factors, other than obesity. Patient was admitted for new onset atrial fibrillation with RVR. 1. New onset Atrial fibrillation -TTE with EF 55-60%, normal left ventricular thickness, size, wall motion. mild-moderate MR. -initially improved with dilt infusion and PO metoprolol. With transition to 12.5 mg metoprolol and PO diltiazem last night she has remained stable this morning with HR's less than 100 - in afib. . -CHADS2-VASC of 2, started on Anticoagulation after discussion. Continue eliquis. -she will discharge home to [place] and follow-up with her primary care there soon. She has the name of an clinical fellow in [place] that she plans to see. We talked about potential for cardioversion once she has been anticoagulated for an appropriate interval. 2. Possible CKD - creatinine 1.06 on admission 3. Hormone replacement therapy, chronic, present on admission -Continue patient's estradiol and progesterone. Consider cessation given stroke risk. 4. Subclinical hypothyroidism - PCP follow up. TSH 5.28 with normal free t4. Discharge Plan Discharge Plan Patient Disposition: Home Provider Discharge Comment: Follow up with your PCP - Ara Concepcion in [place] Discharge orders & Medications Prescriptions: New Eliquis 5 mg Tablet 5 mg PO BID Qty: 60 RF: 0 diltiazem HCl 60 mg Capsule,Extended Release 12 Hr 60 mg PO BID Qty: 60 RF: 0 metoprolol succinate 25 mg Tablet Extended Release 24 Hr 12.5 mg PO BID Qty: 60 RF: 0 Continued progesterone micronized 200 mg capsule 200 mg PO BEDTIME RF: 0 estradiol 1 mg tablet 1 mg PO DAILY RF: 0 Follow up/Referrals: Doctor Hari, [Primary Care Provider] - Diet/Activity/Treatments Diet: Low-fat Visit Report/Discharge Packet Instructions: DI for Atrial Fibrillation, DI for Prescription Opioid Use Discharge Data Primary Care Provider: Doctor Hari Attending Provider: Aurora Greenberg
--- NOTE | 2021-07-06 11:26 | PC.NURSE ---
pt discharged from hospital at 1125, her heart rhythm remains in afib with rate controlled- explained at length, to both pt and her spouse the reason for new rx and answered all questions to their satisfaction- dc to home at this time
== END 2021-07-06 11:27 | disposition home or self-care (01) ==
LOC: ED 22:15 → AC 22:51 → ICU 07-05 07:29
PROVIDERS: Emergency Medicine; Internal Medicine; Admitting Provider Nurse Practitioner Family; Emergency Provider Emergency Medicine; Referring Provider Emergency Medicine; Visit Provider Nurse Practitioner Family
DX: I48.91 Unspecified atrial fibrillation (principal); R06.02 Shortness of breath; Z79.890 Hormone replacement therapy; Z20.822 Contact with and (suspected) exposure to COVID-19; R05 Cough; R09.81 Nasal congestion
CPT/HCPCS: 36415; 71045; 80048; 80053; 80061; 82550; 83735; 83880; 84439; 84443; 84484; 85025; 85379; 85610; 87635; 93005; 93010; 93306; 99284; C9803; G0378; J0153